=== PATIENT | female | born 2005 ===

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

== ENCOUNTER 2023-05-09 13:10 | Emergency (ER) | payer MEDICAID, SELFPAY ==
[2023-05-09 13:25] VITALS: BP 122/78; PULSE 73; RESP 19; TEMP 36.6; O2SAT 99; BMI 18.1
--- NOTE | 2023-05-09 13:29 | ED_ITS ---
HPI - General Adult General Chief complaint: Eye Problems Stated complaint: ? R Eye Infection Time Seen by Provider: 05/09/23 14:20 Source: patient Mode of arrival: ambulatory Limitations: no limitations History of Present Illness HPI narrative: 17 year old female with history of environmental and food allergies, remote history of asthma no longer treated, presents to ED for evaluation of 3 day history of right eye swelling, redness, without drainage. Reports she noticed swelling on Sunday and then it resolved without intervention. Noticed swelling and redness returned this morning. Reports that it feels uncomfortable, pain with looking around. Denies change in vision, headache, upper respiratory symptoms like cough, coryza. Denies trying any medications. Does not wear contacts or glasses. MD complaint: eye redness, swelling Onset (ago): day(s) Location: eyes Relieving factors: none Exacerbating factors: none Associated symptoms: denies other symptoms Treatments prior to arrival: none Related Data Previous Rx's Medication Instructions Recorded acetaminophen 325 mg capsule 650 mg (2 x 325 mg) PO Q4H PRN 09/02/22 (Tylenol) fever or pain #20 caps erythromycin 5 mg/gram (0.5 %) eye 0.5 inch ophthalmic (eye) DAILY 7 05/09/23 ointment days #3.5 grams Allergies Allergy/AdvReac Type Severity Reaction Status Date / Time cat dander [CAT] Allergy Unknown RASH Verified 05/09/23 13:25 dog dander [DOGS] Allergy Unknown RASH Verified 05/09/23 13:25 seafood Allergy Unknown Hives Verified 05/09/23 13:25 Seasonal Allergies Allergy Unknown Unknown Verified 05/09/23 13:25 ENVIRONMENTAL Allergy Unknown RASH Uncoded 05/09/23 13:25 GRASS Allergy Unknown RASH Uncoded 05/09/23 13:25 Review of Systems Review of Systems: Yes all other systems are reviewed and are negative PMFSH Social History Social History Advance Directives: No Advance Directives Information Provided: Yes Physical Exam ED Vital Signs: Vital Signs - 24 hr 05/09/23 13:25 05/09/23 15:48 Temperature 98 F Pulse Rate 73 56 Respiratory Rate 19 14 Blood Pressure 122/78 112/61 Pulse Oximetry 99 99 Oxygen Delivery Method Room Air BMI result Body Mass Index 18.1 Const General: cooperative, healthy appearing, comfortable and no acute distress Nutritional Appearance: average body habitus Orientation/consciousness: patient oriented x3 Limitations: no limitations HENMT Head: Yes normal to inspection Ears: hearing grossly normal bilaterally Eyes General: appearance normal, both eyes and all related structures Visual Nicholson: normal visual nicholson by confrontation Alignment and Position: alignment normal Eyelids: Yes eyelid abnormality (Right-sided edema and erythema to eyelids.) Conjunctivae: conjunctival abnormal right conjunctival chemosis and conjunctival injection Pupils: Equal, round and reactive pupils present and Pupil accommodation reflex normal EOM: EOMs intact bilaterally Direct Ophthalmoscopy: normal light reflex, no photophobia and other (Pain with EOM.) Neuro General: patient oriented x3 Cranial nerves: Yes Equal, round and reactive pupils present Course Course Course Narrative: RME- 17 year old female presents for evaluation of right eye swelling and itching since yesterday. She has chemosis to the right lateral eye. No significant injection. She has mild lower eyelid edema. Denies trauma. Plan for eye examination. Medications Administered Discontinued Medications Generic Name Dose Route Start Last Admin Trade Name Harveyq PRN Reason Stop Dose Admin Fluorescein Sodium 1 strip 05/09/23 15:26 05/09/23 15:37 Fluorescein Sodium Strip EYE-RIGHT 05/09/23 15:27 1 strip ONCE ONE Administration Tetracaine HCl 1 drop 05/09/23 15:26 05/09/23 15:37 Tetracaine Hcl/Pf 0.5% Oph Karen 4 Ml Drops EYE-RIGHT 05/09/23 15:27 1 drop ONCE ONE Administration Medical Decision Making Medical Decision Making [facility] Narrative: 17 year old female with history of environmental and food allergies, remote history of asthma no longer treated, presents to ED for evaluation of 3 day history of right eye swelling, redness. PE reveals lid edema, erythema, conjunctival chemosis and mild injection. EOM intact but painful. Peripheral vision intact. PERRL. Plan: fluorescein dye and light exam c/w corneal abrasion at 9 o'clock. chemosis of lateral conjunctiva discussed dx and management stable for d/c home w/ erythromycin Differential Diagnosis Differential Diagnoses: The differential diagnosis associated with the presentation includes Conjunctivitis viral vs bacterial vs allergic, orbital cellulitis, foreign body Prescription Management I considered prescription management with: Antibiotic Critical Care Time Critical Care Time Critical Care Time: No Discharge Plan Discharge Clinical Impression: Chemosis of right conjunctiva Corneal abrasion Qualifiers: Encounter type: initial encounter Laterality: right Qualified Code(s): S05.01XA - Injury of conjunctiva and corneal abrasion without foreign body, right eye, initial encounter Patient Disposition: Home, Self-Care Instructions: Corneal Abrasion (ED) Additional Instructions: You were seen for eye irritation. Use antibiotics as directed. Use warm or cold compresses as preferred. Return to ER if you develop change in vision, fevers, chills, or symptoms worsen. Prescriptions: New erythromycin 5 mg/gram (0.5 %) ointment 0.5 inch ophthalmic (eye) DAILY 7 Days Qty: 3.5 1RF No Action acetaminophen [Tylenol] 325 mg capsule 650 mg PO Q4H PRN (Reason: fever or pain) Qty: 20 0RF Referrals: Dominick Covarrubias [Physician] -
[2023-05-09] MEDS: Tetracaine HCl/PF 0.5% Oph Sol 4 ML DROPS 1 DROP EYE-RIGHT (15:37)
[2023-05-09] MEDS: Fluorescein Sodium STRIP 1 STRIP EYE-RIGHT (15:37)
[2023-05-09 15:48] VITALS: BP 112/61; PULSE 56; RESP 14; O2SAT 99
== END 2023-05-09 16:04 | disposition home or self-care (01) ==
PROVIDERS: Emergency Provider Internal Medicine
DX: H11.421 Conjunctival edema, right eye (principal)
CPT/HCPCS: 99283

== ENCOUNTER 2025-06-05 14:28 | Emergency (ER) | payer OTHER, MEDICAID, SELFPAY ==
--- NOTE | ~2025-06-05 | CT_ITS ---
EXAMINATION: CT HEAD AND FACIAL BONES WITHOUT CONTRAST CLINICAL INFORMATION: Right orbital pain, head strike. COMPARISON: None TECHNIQUE: Contiguous axial imaging was performed from the skull base to vertex, as well as the maxillofacial bones/mandible without intravenous administration of contrast. Multiplanar reformatted imaging was constructed from the axial data set. This CT examination was performed using dose optimization techniques as appropriate, variously including the following: *Automated exposure control *Adjustment of mA and/or kV according to patient size (this includes techniques or standardized protocols for targeted exams where dose is matched to indication/reason for exam; i.e. extremities or head) *Use of iterative reconstruction technique CT HEAD: There is no evidence of intracranial hemorrhage or extra-axial fluid collection. There is no mass effect, or edema. No CT evidence of acute territorial infarct. Ventricles, sulci, and cisterns are normal in size and configuration for patient age. No hydrocephalus. No midline shift. Negative hyperdense MCA sign. Negative insular ribbon sign. No significant white matter abnormalities. Normal pituitary. Globes and orbital contents image normally. No extracranial soft tissue abnormalities. The calvarium and skull base are intact without fracture. CT MAXILLOFACIAL BONES: The mandible is intact without fracture. The TM joints are normally oriented. The nasal bones, nasal process, maxilla, orbits, zygomatic arches, pterygoid plates, and sphenoid bone are intact without fracture. There is an S-shaped nasal septum, inferior component convex to the right with a small spur. Nasal septum is intact. Paranasal sinuses are normally pneumatized throughout. No paranasal sinus fractures. The mastoids and tympanic cavities are normally aerated. Imaged maxillofacial/neck soft tissues appear normal. CT/CT facial bones wo IV con IMPRESSION: 1. No acute intracranial abnormality. No calvarial or skull base fracture. 2. No evidence of maxillofacial or orbital fracture or soft tissue abnormality. Electronically signed by: Kevin Reich MD 06/05/2025 03:42 PM EDT
[2025-06-05 15:03] VITALS: BP 110/58; PULSE 87; RESP 18; TEMP 37; O2SAT 98; BMI 16.0
--- NOTE | 2025-06-05 15:04 | ED_ITS ---
HPI - Head Injury General Chief complaint: Eye Problems Stated complaint: eye inj @ work Time Seen by Provider: 06/05/25 16:15 Source: patient and RN notes reviewed Mode of arrival: ambulatory Limitations: no limitations History of Present Illness ED Provider: Clary Ackerman PA-C HPI Narrative: This is a 19-year-old female who presents emergency department with concerns of headache, and infraorbital pain status post being struck by a freezer door at work this afternoon. Denies LOC. No vision changes, no eye pain. She denies nicanor double visiono, blurred vision, nausea, vomiting, photophobia. Denies AC use. No contact use. No other complaints or concerns at this time. MD Complaint: head injury Onset (ago): hour(s) Mechanism of Injury: work related injury Place: work Loss of Consciousness: no Location of injury: occipital Severity: moderate Radiation: none Other Injuries: none Associated symptoms: denies other symptoms Related Data Previous Rx's ?Medication ?Instructions ?Recorded acetaminophen 325 mg capsule 650 mg (2 x 325 mg) PO Q4 H PRN 09/02/22 (Tylenol) fever or pain #20 caps erythromycin 5 mg/gram (0.5 %) eye 0.5 inch ophthalmic (eye) DAILY 7 05/09/23 ointment days #3.5 grams Allergies Allergy/AdvReac Type Severity Reaction Status Date / Time cat dander (CAT) Allergy Unknown RASH Verified 06/05/25 15:05 dog dander (DOGS) Allergy Unknown RASH Verified 06/05/25 15:05 seafood Allergy Unknown Hives Verified 06/05/25 15:05 Seasonal Allergies Allergy Unknown Unknown Verified 06/05/25 15:05 ENVIRONMENTAL Allergy Unknown RASH Uncoded 06/05/25 15:05 GRASS Allergy Unknown RASH Uncoded 06/05/25 15:05 Review of Systems Review of Systems: Constitutional : No Fever, No Chills ENT/Mouth : No sore throat, No Rhinorrhea Eyes: No Eye Pain, No Swelling, No Redness Cardiovascular : No Chest Pain, No SOB Respiratory : No Cough, No Sputum Gastrointestinal : No Nausea, No Vomiting, No Diarrhea, No abdominal Pain Genitourinary : No Dysuria, No Hematuria Musculoskeletal : No joint pain, No Myalgias, No Joint Swelling Skin : No Skin Lesions Neuro : No Weakness, No Numbness, + Headache All other systems reviewed and are negative Yes all other systems are reviewed and are negative Constitutional: Constitutional: Reports as per [facility] Social History Social History Advance Directives: No Advance Directives Information Provided: No Physical Exam Vital Signs: Vital Signs: Last Vital Signs Temp 98.6 F 06/05/25 16:39 Pulse 87 06/05/25 16:39 Resp 18 06/05/25 16:39 BP 110/58 L 06/05/25 16:39 Pulse Ox 98 06/05/25 16:39 O2 Del Method Room Air 06/05/25 16:39 BMI result Body Mass Index 16.0 Const: General: cooperative, comfortable and no acute distress Orientation/consciousness: patient oriented x3 Limitations: no limitations HEENT: Other: Left infraorbital ttp, no bony step off or deformity. .5mm superficial abrasion noted. Head: Yes normal to inspection, Yes normocephalic and Yes atraumatic Ears: hearing grossly normal bilaterally General nose exam: Normal external nose present Face and sinus: Yes normal facial exam Mouth: Normal oral and palatal mucosa present, oropharynx normal and moist mucous membranes Throat: Yes posterior oropharynx normal Eyes: General: appearance normal, both eyes and all related structures Eyelids: Yes eyelids normal Conjunctivae: conjunctivae normal Sclerae: sclerae normal Pupils: Equal, round and reactive pupils present EOM: EOMs intact bilaterally Neck: Neck: Yes normal visual inspection, Yes full ROM and Yes no lymphadenopathy Lymphatic: no lymphadenopathy noted Chest: Chest palpation & inspection: normal inspection of the chest Resp: Effort & Inspection: normal respiratory effort and able to speak in complete sentences Auscultation: clear to auscultation bilaterally, no crackles, no rales, no rhonchi and no wheezes Cardio: Rate: regular rate Rhythm: regular rhythm Heart sounds: S1 normal heart sound present and S2 normal heart sound present GI: Inspection: Yes normal to inspection Skin: General skin exam: no rashes or lesions noted Trauma: no lacerations or abrasions Wounds: no wounds Neuro: General: patient oriented x3 and moves all extremities Cranial nerves: Yes Equal, round and reactive pupils present Gait exam (Neuro): Normal gait present Motor exam (neuro): 5/5 motor strength present throughout and Pronator motor function not present Coordination: [id number] test normal Pupils: Normal pupillary reactivity/response: bilateral Extrem: General: Yes normal to inspection Right upper extremity: normal to inspection Left upper extremity: normal to inspection Right lower extremity: normal to inspection Left lower extremity: normal to inspection Medical Decision Making Medical Decision Making [facility] Narrative: 19 y/o F who presents to the Er with concerns of head injury which occurred at work today. Her left side of her face was struck by a freezer door. Now reporting headache. On arrival, vital signs WNL, she is well appearing, under no acute distress. She is neurologically intact. DDX including closed head injury, concussion, ICH - unlikely, facial fracture. CT head and facial bones obtained to r/o any acute process which were negative. Discussed with pt, advised concussion/head injury management, she understands and agrees with plan. Superficial abrasion not needing any repair. Pt stable for d.c. Differential Diagnosis Differential Diagnoses: The differential diagnosis associated with the presentation includes see above Radiology Impression Discussion of test interpretation with radiology: I have reviewed the radiologist's reading. Radiologist Impression: CT/CT head/brain wo IV con IMPRESSION: 1. No acute intracranial abnormality. No calvarial or skull base fracture. 2. No evidence of maxillofacial or orbital fracture or soft tissue abnormality. Electronically signed by: Kevin Reich MD 06/05/2025 03:42 PM EDT Dictated By: Kevin Reich MD [place] [id number] CT Scan Report Signed Patient: Ronnie Mujica MR#: [id number] : 2005 Acct:[id number] Age/Sex: 19 / F ADM Date: 06/05/25 Loc: HO.ED Attending Dr: Ordering Physician: Clary Ackerman Date of Service: 06/05/25 Procedure(s): CT facial bones wo IV con Accession Number(s): [id number] cc: Bernie Lynn MD; Clary Ackerman~ Report Number: [id number]: Total DLP = 253.00 mGy-cm Reason for Exam: right orbital pain EXAMINATION: CT HEAD AND FACIAL BONES WITHOUT CONTRAST CLINICAL INFORMATION: Right orbital pain, head strike. COMPARISON: None TECHNIQUE: Contiguous axial imaging was performed from the skull base to vertex, as well as the maxillofacial bones/mandible without intravenous administration of contrast. Multiplanar reformatted imaging was constructed from the axial data set. This CT examination was performed using dose optimization techniques as appropriate, variously including the following: *Automated exposure control *Adjustment of mA and/or kV according to patient size (this includes techniques or standardized protocols for targeted exams where dose is matched to indication/reason for exam; i.e. extremities or head) *Use of iterative reconstruction technique CT HEAD: There is no evidence of intracranial hemorrhage or extra-axial fluid collection. There is no mass effect, or edema. No CT evidence of acute territorial infarct. Ventricles, sulci, and cisterns are normal in size and configuration for patient age. No hydrocephalus. No midline shift. Negative hyperdense MCA sign. Negative insular ribbon sign. No significant white matter abnormalities. Normal pituitary. Globes and orbital contents image normally. No extracranial soft tissue abnormalities. The calvarium and skull base are intact without fracture. CT MAXILLOFACIAL BONES: The mandible is intact without fracture. The TM joints are normally oriented. The nasal bones, nasal process, maxilla, orbits, zygomatic arches, pterygoid plates, and sphenoid bone are intact without fracture. There is an S-shaped nasal septum, inferior component convex to the right with a small spur. Nasal septum is intact. Paranasal sinuses are normally pneumatized throughout. No paranasal sinus fractures. The mastoids and tympanic cavities are normally aerated. Imaged maxillofacial/neck soft tissues appear normal. CT/CT facial bones wo IV con IMPRESSION: 1. No acute intracranial abnormality. No calvarial or skull base fracture. 2. No evidence of maxillofacial or orbital fracture or soft tissue abnormality. Electronically signed by: Kevin Reich MD 06/05/2025 03:42 PM EDT RP Dictated By: Kevin Reich MD Discharge Plan Discharge Clinical Impression: Head injury Patient Disposition: Home, Self-Care Instructions: Head Injury (ED) Additional Instructions: You were seen in the emergency department after injuring your head. Your CT of your head and facial bones do not show any injury from the accident today. Please practice physical and mental rest. Avoid prolonged screen times. You may take ibuprofen and or Tylenol as needed for pain and symptoms. If any new or worsening symptoms occur including but not limited to worsening headache, dizziness, blurred vision, double vision, please seek emergent care. Prescriptions: No Action acetaminophen [Tylenol] 325 mg capsule 650 mg PO Q4H PRN (Reason: fever or pain) Qty: 20 0RF erythromycin 5 mg/gram (0.5 %) ointment 0.5 inch ophthalmic (eye) DAILY 7 Days Qty: 3.5 1RF Stand Alone Forms: Work/School Release Interventions: ED Discharge Assessment Last Done: 06/05/25 16:39 Discharge Date/Time: 06/05/25 16:41 Print Language: Indonesian
[2025-06-05 16:39] VITALS: BP 110/58; PULSE 87; RESP 18; TEMP 37; O2SAT 98
== END 2025-06-05 16:41 | disposition home or self-care (01) ==
PROVIDERS: Emergency Provider Emergency Medicine; PCP Pediatrics
DX: S09.90XA Unspecified injury of head, initial encounter (principal); R51.9 Headache, unspecified; M54.2 Cervicalgia; Y29.XXXA Contact with blunt object, undetermined intent, initial encounter; Y93.9 Activity, unspecified; Y92.9 Unspecified place or not applicable; Y99.0 Civilian activity done for income or pay
CPT/HCPCS: 70450; 70486; 99282; 99284

== ENCOUNTER → 2025-06-05 15:07 | Outpatient (BNV) | payer MEDICAID, SELFPAY | PROVIDERS: PCP Pediatrics; Visit Provider Radiology Diagnostic Radiology | DX: H57.11 Ocular pain, right eye (principal) | CPT/HCPCS: 70450; 70486 ==

== ENCOUNTER 2025-06-28 14:17 | Emergency (ER) | payer MEDICAID, SELFPAY ==
--- NOTE | 2025-06-28 14:59 | ED_ITS ---
HPI - URI/Sore Throat General Chief Complaint: Upper Respiratory Symptoms Stated Complaint: sore throat Time Seen by Provider: 06/28/25 15:02 Source: patient, RN notes reviewed and old records reviewed Mode of arrival: ambulatory History of Present Illness ED Provider: Arlene Quigley PA-C HPI Narrative: 19-year-old female with no significant PMHx presenting to the ED c/o sore throat x2 days with painful swallowing. Also reports myalgias & congestion. Denies fever, chills, inability to swallow, sick contacts Related Data Previous Rx's ?Medication ?Instructions ?Recorded acetaminophen 325 mg capsule 650 mg (2 x 325 mg) PO Q4 H PRN 09/02/22 (Tylenol) fever or pain #20 caps erythromycin 5 mg/gram (0.5 %) eye 0.5 inch ophthalmic (eye) DAILY 7 05/09/23 ointment days #3.5 grams Allergies Allergy/AdvReac Type Severity Reaction Status Date / Time cat dander (CAT) Allergy Unknown RASH Verified 06/28/25 15:01 dog dander (DOGS) Allergy Unknown RASH Verified 06/28/25 15:01 seafood Allergy Unknown Hives Verified 06/28/25 15:01 Seasonal Allergies Allergy Unknown Unknown Verified 06/28/25 15:01 ENVIRONMENTAL Allergy Unknown RASH Uncoded 06/05/25 15:05 GRASS Allergy Unknown RASH Uncoded 06/05/25 15:05 Review of Systems Review of Systems: Yes all other systems are reviewed and are negative Constitutional: Constitutional: Reports as per [facility] Past Medical History Attestation statement: The following information was validated with the patient. Source: old records reviewed Social History Social History Advance Directives: No Advance Directives Information Provided: No Physical Exam Vital Signs: Vital Signs: Last Vital Signs Temp 98.4 F 06/28/25 16:20 Pulse 69 06/28/25 16:20 Resp 14 06/28/25 16:20 BP 116/59 L 06/28/25 16:20 Pulse Ox 100 06/28/25 16:20 O2 Del Method Room Air 06/28/25 16:20 BMI result Body Mass Index 18.9 Const: General: cooperative, healthy appearing and no acute distress Orientation/consciousness: patient oriented x3 Limitations: no limitations HEENT: Head: Yes normal to inspection and Yes atraumatic Ears: hearing grossly normal bilaterally and external ears normal General nose exam: Normal external nose present Face and sinus: Yes normal facial exam Mouth: no muffled voice Throat: Yes uvula midline, Yes abnormal tonsil (+b/l swollen with exudates), No peritonsillar mass, No uvula laterally displaced and No uvular edema Eyes: General: appearance normal, both eyes and all related structures EOM: EOMs intact bilaterally Neck: Neck: Yes normal visual inspection and Yes no meningeal signs Resp: Effort & Inspection: normal respiratory effort, no respiratory distress and no stridor Cardio: Rate: regular rate Skin: Rashes: no rashes Wounds: no wounds Neuro: General: patient oriented x3, tone normal and no meningeal signs Cranial nerves: Yes CN's II-XII intact bilaterally Gait exam (Neuro): Normal gait present Extrem: General: Yes normal to inspection Course Course Course Narrative: -covid, flu and rapid strep negative Results discussed with patient including worrisome signs and symptoms and strict return precautions, and when to return to the emergency department. They verbalized understanding and feel safe for discharge at this time. Medical Decision Making Medical Decision Making MDM Narrative: 19-year-old female with no significant PMHx presenting to the ED c/o sore throat x2 days with painful swallowing. On exam vital signs stable, NAD, nontoxic appearing, talking in complete sentences, no respiratory distress, no stridor. No muffled voice. Bilateral tonsillar swelling with exudates noted. Uvula midline. Concern for strep pharyngitis vs viral illness. No evidence of [employer]/retroperitoneal abscess Plan: Viral testing, rapid strep Please refer to course for remaining clinical decision making, interpretation of labs/imaging results, and discussions with consultants and/or family members. Differential Diagnosis Differential Diagnoses: The differential diagnosis associated with the presen tation includes As above Lab Data [facility] Lab Attestation statement: I reviewed the patient's lab results. Labs: Lab Results 06/28/25 Range/Units 15:26 COVID-19 (ARIAN) Negative (Negative) COVID-19 Clin Com See Note Influenza Type A (PJ) Negative (Negative) Influenza Type B (PJ) Negative (Negative) Influenza A & B Note See Note S. pyogenes GrpA PJ Negative (Negative) External Record Review External record reviewed: Inpatient record, Office record, Outpatient record, Prior outpatient labs, Prior outpatient radiology, Primary care record and Outside ED record Tests considered The following testing was considered but not selected: As above Prescription Management I considered prescription management with: Pain Medication and Antibiotic Social Determinants Patient?s care significantly limited by Social Determinants of Health including: Other Social Determinant of Health Discharge Plan Discharge Clinical Impression: Pharyngitis Patient Disposition: Home, Self-Care Instructions: Pharyngitis (ED) Additional Instructions: You have a virus. you tested negative for COVID, FLU & STREP No antibiotics are indicated at this time Make sure you are staying hydrated. Drink plenty of fluids. Rest Alternate Tylenol and Motrin at home as needed for body aches and fever Follow-up with your doctor. If symptoms persist or worsen return to the emergency department *If you are a child & not tolerating liquid or urinating for more than 6 hours, or fevers are uncontrolled with medications at home, return to the emergency department* Prescriptions: No Action acetaminophen [Tylenol] 325 mg capsule 650 mg PO Q4H PRN (Reason: fever or pain) Qty: 20 0RF erythromycin 5 mg/gram (0.5 %) ointment 0.5 inch ophthalmic (eye) DAILY 7 Days Qty: 3.5 1RF Referrals: Bernie Lynn MD [Primary Care Provider, Pediatrics] - 5 days Interventions: ED Discharge Assessment Last Done: 06/28/25 16:20 Discharge Date/Time: 06/28/25 16:20 Print Language: Bel[place]ian
[2025-06-28 15:00] VITALS: BP 116/59; PULSE 69; RESP 14; TEMP 36.9; O2SAT 100; BMI 18.9
--- OUTSIDE RECORDS SUMMARY | 2025-06-28 15:33 | XMS_ITS | Clinical Summary ---
Author Organization [employer] Address [address] [place] [address] Care Team Providers Care Alliance Manager Name Role Phone Tisha Baker NP Primary Care Provider [phone] Allergies Active Allergy Reactions Criticality Noted Date Comments Cat Dander Cough 09/10/2019 Dog Epithelium (Canis Lupus Familiaris) Cough 09/10/2019 Pollen Extract Itching 07/11/2022 Shellfish Protein-Containing Drug Products 09/10/2019 Medications albuterol (ProAir HFA) 108 (90 Base) MCG/ACT inhaler Inhale 2 puffs every 4 (four) hours if needed for wheezing. 8 Active cetirizine (ZyrTEC) 10 MG tablet Take 1 tablet by mouth at bedtime. 0 Active diphenhydrAMINE (BENADryl) 25 MG capsule Take 1 capsule by mouth every 4 (four) hours if needed for itching. 0 Active EPINEPHrine (EpiPen 2-Mike) 0.3 MG/0.3ML injection syringe if needed. Use as directed 8 Active FLUoxetine (PROzac) 10 MG capsule Take 1 capsule by mouth in the morning. 0 Active hydrocortisone 2.5 % cream Apply topically 2 times daily. 30 g 1 4 Active triamcinolone (Kenalog) 0.1 % cream Apply topically 2 times daily. 60 g 3 5 Active fluticasone (Flonase) 50 MCG/ACT nasal spray ADMINISTER 2 SPRAYS INTO EACH NOSTRIL ONCE PER DAY. 48 mL Active Active Problems Problem Noted Date Diagnosed Date Asthma 09/23/2024 Mild intermittent asthma 07/11/2022 Depressive disorder 07/11/2022 Allergic rhinitis 11/08/2015 Encounters Date Type Department Care Team Description 06/05/2025 Orders Only [facility] External Provider, [facility] from Last 3 Months Immunizations Immunization Administration Dates Next Due DTaP 12/11/2007, 5,01/28/2004,2003,0 2003 HPV 9-Valent 03/09/2016,11/08/2015 HPV, Quadrivalent 11/03/2014 Hep A, ped/adol, 2 dose 11/03/2014 Hep A, ped/adol, 3 dose 04/24/2011 Hep B, Adolescent or Pediatric 05/19/2004,2002,2003 Hib (HbOC) 07/24/2005,01/28/2004,2003 ,2003 IPV 12/11/2007,05/19/2004,2003 ,2003 Influenza, IIV3, injectable 09/20/2004, 4 MMR 12/11/2007,07/29/2004 Meningococcal MCV4P ACYW-135 09/10/2019,11/04/19 15 Pneumococcal Conjugate PCV 7 12/05/2004,05/19/20 04,2003,2003 Tdap 11/03/2014 Varicella 12/11/2007,07/29/2004 Social History Tobacco Use Types Packs/Day Years Used Date Smoking Tobacco: Never Smokeless Tobacco: Never Tobacco Cessation:Counseling Given: Not Answered Comments Unknown Sex and Gender Information Value Date Recorded Sex Assigned at Female 06/26/2022 10:17 AM EDT Legal Sex Female 10:17 AM EDT Gender Identity Female 06/26/2022 10:17 AM EDT Sexual Orientation Choose not to disclose 2021 10:17 AM EDT Last Filed Vital Signs Vital Sign Reading Time Taken Comments Blood Pressure 120/61 09/23/2024 10:28 AM EST Pulse 65 09/23/2024 10:28 AM EST Temperature 36.4 C (97.6 F) 09/23/2024 10:28 AM EST Respiratory Rate 17 09/23/2024 10:28 AM EST Oxygen Saturation 98% 09/23/2024 10:28 AM EST Inhaled Oxygen Concentration - - Weight 46.7 kg (103 lb) 09/23/2024 10:28 AM EST Height 153.7 cm (5' 0.5 ) 03/22/2021 12:07 AM ED T Body Mass Index - - Plan of Treatment Health Maintenance Due Date Last Done Comments Chlamydia and Gonorrhea Screening 2003 Depression Screening 2003 HIV Screening 2003 SDOH Screening 2003 Disability Screening 2003 Hepatitis A Vaccines (2 of 2 - 2-dose series) 05/06/2015 11/03/2014 Alcohol/Substance Use Screening 2015 Family Planning (PISQ) 2018 Meningococcal B Vaccine (1 of 2 - Standard) 2019 Hepatitis C Screening 2021 Pneumococcal Vaccine: Pediatrics (0 to 5 Years) and At-Risk Patients (6 to 49) Years (1 of 2 - PCV) 2022 12/05/2004, 05/19/2004, 2003, Additional history exists Pap Smear 2024 DTaP/Tdap/Td Vaccines (7 - Td or Tdap) 11/03/2024 11/03/2014, 12/11/2007, 12/05/2004, Additional history exists COVID-19 Vaccine ( - season) 2025 Influenza Vaccine (#1) 2025 09/20/2004, 2003 Tobacco Screening 09/23/2025 09/23/2024 Zoster Vaccines (1 of 2) 2053 RSV Patients and Patients Aged 60 years or older (1 - 1-dose 75+ series) 2078 Hepatitis B Vaccines Completed 05/19/2004, 2003, 2003 HIB Vaccines Completed 07/24/2005, 06/0 10/2003, 2003, Additional history exists IPV Vaccines Completed 12/11/2007, 2 10/2003, 2003, Additional history exists HPV Vaccines Completed 03/09/2016, 10/25, 11/03/2014 Meningococcal Vaccine Completed 09/10/2019, 015 RSV under 20 months Aged Out No longe r eligible based on patient's age to complete this topic Rotavirus Vaccines Aged Out No longer eligible based on patient's age to complete this topic Procedures Procedure Name Priority Date/Time Associated Diagnosis Comments CT HEAD WO CONTRAST Routine 06/05/2025 3 :[address] SINUS FACIAL BONES WO CONTRAST Routine 06/05/2025 3:17 PM EDT from Last 3 Months Results * CT Sinus Facial Bones w/o Contrast (06/05/2025 3:17 PM EDT) Anatomical Region Laterality Modality Computed Tomogra phy 06/05/2025 3:17 PM EDT Narrative 06/05/2025 3:45 PM EDT [place] [address] CT Scan Report Signed Patient: Ronnie Mujica MR#: [id number] : 2005 Acct:[id number] Age/Sex: 19 / F ADM Date: 06/05/25 Loc: .ED Attending Dr: Ordering Physician: Clary Ackerman Date of Service: 06/05/25 Procedure(s): CT facial bones wo IV con Accession Number(s): [id number] cc: Bernie Lynn MD; Clary Ackerman Report Number: [id number]: Total DLP = 253.00 mGy-cm Reason for Exam: right orbital pain EXAMINATION: CT HEAD AND FACIAL BONES WITHOUT CONTRAST CLINICAL INFORMATION: Right orbital pain, head strike. COMPARISON: None TECHNIQUE: Contiguous axial imaging was performed from the skull base to vertex, as well as the maxillofacial bones/mandible without intravenous administration of contrast. Multiplanar reformatted imaging was constructed from the axial data set. This CT examination was performed using dose optimization techniques as appropriate, variously including the following: *Automated exposure control *Adjustment of mA and/or kV according to patient size (this includes techniques or standardized protocols for targeted exams where dose is matched to indication/reason for exam; i.e. extremities or head) *Use of iterative reconstruction technique CT HEAD: There is no evidence of intracranial hemorrhage or extra-axial fluid collection. There is no mass effect, or edema. No CT evidence of acute territorial infarct. Ventricles, sulci, and cisterns are normal in size and configuration for patient age. No hydrocephalus. No midline shift. Negative hyperdense MCA sign. Negative insular ribbon sign. No significant white matter abnormalities. Normal pituitary. Globes and orbital contents image normally. No extracranial soft tissue abnormalities. The calvarium and skull base are intact without fracture. CT MAXILLOFACIAL BONES: The mandible is intact without fracture. The TM joints are normally oriented. The nasal bones, nasal process, maxilla, orbits, zygomatic arches, pterygoid plates, and sphenoid bone are intact without fracture. There is an S-shaped nasal septum, inferior component convex to the right with a small spur. Nasal septum is intact. Paranasal sinuses are normally pneumatized throughout. No paranasal sinus fractures. The mastoids and tympanic cavities are normally aerated. Imaged maxillofacial/neck soft tissues appear normal. CT/CT facial bones wo IV con IMPRESSION: 1. No acute intracranial abnormality. No calvarial or skull base fracture. 2. No evidence of maxillofacial or orbital fracture or soft tissue abnormality. Electronically signed by: Kevin Reich MD 06/05/2025 03:42 PM EDT Dictated By: Kvein Reich MD Signed By: <Electronically signed by Kevin Reich MD in [place]> 06/05/25 1542 DD/ 1517 TD/TT: 06/05/25 1531 Microbiology Lab Analyst: Procedure Note Donotuseinterpreter, Image - 06/05/[address] [address] [address] Scan Report Signed Patient: Ronnie MujicaMR#: [id number] : 2005Acct:[id number] Age/Sex: 19 / FADM Date: 06/05/25 Loc: HO.ED Attending Dr: Ordering Physician: Clary Ackerman Date of Service: 06/05/25 Procedure(s): CT facial bones wo IV con Accession Number(s): [id number] cc: Bernie Lynn MD; Clary Ackerman Report Number: [id number]: Total DLP = 253.00 mGy-cm Reason for Exam: right orbital pain EXAMINATION: CT HEAD AND FACIAL BONES WITHOUT CONTRAST CLINICAL INFORMATION: Right orbital pain, head strike. COMPARISON: None TECHNIQUE: Contiguous axial imaging was performed from the skull base to vertex, as well as the maxillofacial bones/mandible without intravenous administration of contrast. Multiplanar reformatted imaging was constructed from the axial data set. This CT examination was performed using dose optimization techniques as appropriate, variously including the following: *Automated exposure control *Adjustment of mA and/or kV according to patient size (this includes techniques or standardized protocols for targeted exams where dose is matched to indication/reason for exam; i.e. extremities or head) *Use of iterative reconstruction technique CT HEAD: There is no evidence of intracranial hemorrhage or extra-axial fluid collection. There is no mass effect, or edema. No CT evidence of acute territorial infarct. Ventricles, sulci, and cisterns are normal in size and configuration for patient age. No hydrocephalus. No midline shift. Negative hyperdense MCA sign. Negative insular ribbon sign. No significant white matter abnormalities. Normal pituitary. Globes and orbital contents image normally. No extracranial soft tissue abnormalities. The calvarium and skull base are intact without fracture. CT MAXILLOFACIAL BONES: The mandible is intact without fracture. The TM joints are normally oriented. The nasal bones, nasal process, maxilla, orbits, zygomatic arches, pterygoid plates, and sphenoid bone are intact without fracture. There is an S-shaped nasal septum, inferior component convex to the right with a small spur. Nasal septum is intact. Paranasal sinuses are normally pneumatized throughout. No paranasal sinus fractures. The mastoids and tympanic cavities are normally aerated. Imaged maxillofacial/neck soft tissues appear normal. CT/CT facial bones wo IV con IMPRESSION: 1. No acute intracranial abnormality. No calvarial or skull base fracture. 2. No evidence of maxillofacial or orbital fracture or soft tissue abnormality. Electronically signed by: Kevin Reich MD 06/05/2025 03:42 PM EDT RP Dictated By: Kevin Reich MD Signed By: <Electronically signed by Kevin Reich MD in [place]> 06/05/25 1542 DD/ 1517 TD/TT: 06/05/25 1531 Microbiology Lab Analyst: us [facility] External Provider IMG CT PROCEDURES Final Result * CT Head w/o Contrast (06/05/2025 3:17 PM EDT) Anatomical Region Laterality Modality Head, Neck Computed Tomogra phy 06/05/2025 3:17 PM EDT Narrative 06/05/2025 3:45 PM EDT [address] [address] [address] Scan Report Signed Patient: Ronnie Mujica MR#: [id number] : 2005 Acct:[id number] Age/Sex: 19 / F ADM Date: 06/05/25 Loc: HO.ED Attending Dr: Ordering Physician: Clary Ackerman Date of Service: 06/05/25 Procedure(s): CT head/brain wo IV con Accession Number(s): [id number] cc: Bernie Lynn MD; Clary Ackerman Report Number: [id number]: Total DLP = 597.00 mGy-cm Reason for Exam: head strike EXAMINATION: CT HEAD AND FACIAL BONES WITHOUT CONTRAST CLINICAL INFORMATION: Right orbital pain, head strike. COMPARISON: None TECHNIQUE: Contiguous axial imaging was performed from the skull base to vertex, as well as the maxillofacial bones/mandible without intravenous administration of contrast. Multiplanar reformatted imaging was constructed from the axial data set. This CT examination was performed using dose optimization techniques as appropriate, variously including the following: *Automated exposure control *Adjustment of mA and/or kV according to patient size (this includes techniques or standardized protocols for targeted exams where dose is matched to indication/reason for exam; i.e. extremities or head) *Use of iterative reconstruction technique CT HEAD: There is no evidence of intracranial hemorrhage or extra-axial fluid collection. There is no mass effect, or edema. No CT evidence of acute territorial infarct. Ventricles, sulci, and cisterns are normal in size and configuration for patient age. No hydrocephalus. No midline shift. Negative hyperdense MCA sign. Negative insular ribbon sign. No significant white matter abnormalities. Normal pituitary. Globes and orbital contents image normally. No extracranial soft tissue abnormalities. The calvarium and skull base are intact without fracture. CT MAXILLOFACIAL BONES: The mandible is intact without fracture. The TM joints are normally oriented. The nasal bones, nasal process, maxilla, orbits, zygomatic arches, pterygoid plates, and sphenoid bone are intact without fracture. There is an S-shaped nasal septum, inferior component convex to the right with a small spur. Nasal septum is intact. Paranasal sinuses are normally pneumatized throughout. No paranasal sinus fractures. The mastoids and tympanic cavities are normally aerated. Imaged maxillofacial/neck soft tissues appear normal. CT/CT head/brain wo IV con IMPRESSION: 1. No acute intracranial abnormality. No calvarial or skull base fracture. 2. No evidence of maxillofacial or orbital fracture or soft tissue abnormality. Electronically signed by: Kevin Reich MD 06/05/2025 03:42 PM EDT Dictated By: Kevin Reich MD Signed By: <Electronically signed by Kevin Reich MD in [place]> 06/05/25 1542 DD/ 1517 TD/TT: 06/05/25 1531 Microbiology Lab Analyst: Procedure Note Donotuseinterpreter, Image - 06/05/[address] [place] [address] [address] Scan Report Signed Patient: Ronnie Mujica#: [id number] : 2005Acct:[id number] Age/Sex: 19 / FADM Date: 06/05/25 Loc: HO.ED Attending Dr: Ordering Physician: Clary Ackerman Date of Service: 06/05/25 Procedure(s): CT head/brain wo IV con Accession Number(s): [id number] cc: Bernie Lynn MD; Clary Ackerman Report Number: [id number]: Total DLP = 597.00 mGy-cm Reason for Exam: head strike EXAMINATION: CT HEAD AND FACIAL BONES WITHOUT CONTRAST CLINICAL INFORMATION: Right orbital pain, head strike. COMPARISON: None TECHNIQUE: Contiguous axial imaging was performed from the skull base to vertex, as well as the maxillofacial bones/mandible without intravenous administration of contrast. Multiplanar reformatted imaging was constructed from the axial data set. This CT examination was performed using dose optimization techniques as appropriate, variously including the following: *Automated exposure control *Adjustment of mA and/or kV according to patient size (this includes techniques or standardized protocols for targeted exams where dose is matched to indication/reason for exam; i.e. extremities or head) *Use of iterative reconstruction technique CT HEAD: There is no evidence of intracranial hemorrhage or extra-axial fluid collection. There is no mass effect, or edema. No CT evidence of acute territorial infarct. Ventricles, sulci, and cisterns are normal in size and configuration for patient age. No hydrocephalus. No midline shift. Negative hyperdense MCA sign. Negative insular ribbon sign. No significant white matter abnormalities. Normal pituitary. Globes and orbital contents image normally. No extracranial soft tissue abnormalities. The calvarium and skull base are intact without fracture. CT MAXILLOFACIAL BONES: The mandible is intact without fracture. The TM joints are normally oriented. The nasal bones, nasal process, maxilla, orbits, zygomatic arches, pterygoid plates, and sphenoid bone are intact without fracture. There is an S-shaped nasal septum, inferior component convex to the right with a small spur. Nasal septum is intact. Paranasal sinuses are normally pneumatized throughout. No paranasal sinus fractures. The mastoids and tympanic cavities are normally aerated. Imaged maxillofacial/neck soft tissues appear normal. CT/CT head/brain wo IV con IMPRESSION: 1. No acute intracranial abnormality. No calvarial or skull base fracture. 2. No evidence of maxillofacial or orbital fracture or soft tissue abnormality. Electronically signed by: Kevin Reich MD 06/05/2025 03:42 PM EDT Dictated By: Kevin Reich MD Signed By: <Electronically signed by Kevin Reich MD in [place]> 06/05/25 1542 DD/ 1517 TD/TT: 06/05/25 1531 Microbiology Lab Analyst: [facility] External Provider IMG CT PROCEDURES Final Result from Last 3 Months Insurance [facility] C3 Care Teams Alliance Manager Relationship Specialty Start Date End Date Tisha Baker NP [address] [place] [id number] PCP - General Family Medicine 10/29/23
[2025-06-28 16:02] LABS: IDNOW Serial# 08D9AD1C; IDNOW Serial# 55D5AD1C; Influenza B2 Negative (Negative)
[2025-06-28 16:03] LABS: COVID-19 Test Negative (Negative); IDNOW Serial# 6674DD1D; Strep A Nucleic Acid Negative (Negative)
[2025-06-28 16:20] VITALS: BP 116/59; PULSE 69; RESP 14; TEMP 36.9; O2SAT 100
== END 2025-06-28 16:20 | disposition home or self-care (01) ==
PROVIDERS: Physician Assistant; Emergency Provider Emergency Medicine; PCP Pediatrics
DX: J02.9 Acute pharyngitis, unspecified (principal); M79.10 Myalgia, unspecified site; R09.81 Nasal congestion
CPT/HCPCS: 87502; 87635; 87651; 99282; 99283